=== PATIENT | male | born 1990 | race Caucasian/White ===

== ENCOUNTER 2016-11-18 14:31 | Outpatient (CLI) | payer OTHER ==
--- NOTE | 2016-11-18 14:57 | DIAGNOSTIC IMAGING REPORT ---
PROCEDURE: XR KNEE 4 VIEWS - RIGHT INDICATION: R KNEE PX,UNSPECIFIED CHRONICITY TECHNIQUE: Four views. COMPARISON: None. FINDINGS: Osseous structures and joint spaces are normal. IMPRESSION: 1. Normal right knee.
== END 2016-11-19 16:00 | disposition home or self-care (01) ==
LOC: XR SRH 14:31
DX: M25.561 Pain in right knee (principal)